=== PATIENT | female | born 1940 | race Caucasian/White ===

== ENCOUNTER 2022-04-23 20:47 | Emergency (ER) | payer OTHER, MEDICARE ==
[~2022-04-23] VITALS: Ht 157.5 cm; Wt 74.4 kg
[~2022-04-23 20:47] MED LIST: FURO20 PO; GABA300 PO; HYDACE5325 PO; PRAM.125 PO
[2022-04-23] MEDS ORDERED: FOSAMAX70 MG PO (21:00)
== END 2022-04-24 00:53 | disposition home or self-care (01) ==
LOC: ER 20:47
DX: S52.691A Other fracture of lower end of right ulna, initial encounter for closed fracture (principal); J44.9 Chronic obstructive pulmonary disease, unspecified; V89.2XXA Person injured in unspecified motor-vehicle accident, traffic, initial encounter; Z79.899 Other long term (current) drug therapy; Z87.891 Personal history of nicotine dependence; Z88.0 Allergy status to penicillin
CPT/HCPCS: 73090; 73110; A9270

== ENCOUNTER 2022-05-04 11:14 | Day surgery (SDC) | payer OTHER, MEDICARE ==
[~2022-05-04] VITALS: Ht 157.5 cm; Wt 75.8 kg
[~2022-05-04 11:14] MED LIST changes: +FOSAMAX70 MG PO; +PERCOCET 10-321 EA10 PO
--- NOTE | 2022-05-04 13:00 | NUR ---
Ambulatory in Day Surgery. Surgical site prepped with 2% Chlorhexidine cloth wipe. History, Chart, Medications and Allergies reviewed before start of procedure. Patient confirms NPO status and agrees with scheduled surgery. Pre-Op teaching done. Pt verbalizes understanding. Patient States Post-Procedure ride home has been arranged WITH DAUGHTER JAMES.
--- NOTE | 2022-05-04 17:20 | NUR ---
pT IS AWAKE AND ALERT, VITALS ARE STABLE. PT DRESSED WITH HELP OF DAUGHTER, NURSE REMAINED IN ROOM. Discharge instructions reviewed with patient. Patient verbalizes understanding. Copy given to patient to take home. Lungs clear T/O to Auscultation. Discharged via wheelchair to private car for ride home.
== END 2022-05-04 23:07 | disposition home or self-care (01) ==
LOC: ORSCMMR 11:14 → ORD 12:30 → ORSCMMR 23:07
PROVIDERS: Orthopaedic Surgery
PROC: 0PS Upper Bones, Reposition (ICD-10-PCS; principal; 2022-05-04 13:30)
DX: S52.201A Unspecified fracture of shaft of right ulna, initial encounter for closed fracture (principal); K21.9 Gastro-esophageal reflux disease without esophagitis; M19.90 Unspecified osteoarthritis, unspecified site; Z79.899 Other long term (current) drug therapy
CPT/HCPCS: 93005; 93010; A9270; C1713; J0690; J1100; J2405; J2704; J3010; J7120

== ENCOUNTER 2023-01-04 09:47 | Day surgery (SDC) | payer MEDICARE ==
[2023-01-04] VITALS (12 sets, daily range): BP systolic 106–148; BP diastolic 50–95
[~2023-01-04] VITALS: Ht 152.4 cm; Wt 75.3 kg
[~2023-01-04 09:47] MED LIST changes: +VITAMIN D310 MC4 PO
--- NOTE | 2023-01-04 14:01 | NUR ---
Ambulatory in Day Surgery Patient confirms NPO status and agrees with scheduled surgery. Pre-Op teaching done. Pt verbalizes understanding. History, Chart, Medications and Allergies reviewed before start of procedure.
--- NOTE | 2023-01-04 15:53 | NUR ---
01/04/23 1553 Rebecca Jang PRIOR TO PREPPING PATIENT'S SKIN NOTED REDNESS AND IRRITATION PRESENT ALONG LOWER RIGHT ABDOMEN TO MIDLINE,AND RIGHT GWYN/GROIN WITH SMALL AMOUNT OF FLUID. , [place], AND NOTIFIED. EXAMINED AREA. MICONAZOLE NITRATE 2% POWDER ORDERED FOR APLLICATION POST OP PER .
--- NOTE | 2023-01-04 19:11 | NUR ---
SHIFT SUMMARY PT A&OX4, VSS/2LNC, NOHELIA PO, AWAITING POST OP VOID/BEDREST, PAIN MANAGED. S/P R TKA AQUACEL/CRISTINA CDI, WIGGLES TOES. WILL REPORT TO ONCOMING NOC RN.
--- NOTE | 2023-01-05 04:08 | NUR ---
SHIFT SUMMARY POD1 R TKA PT A&O X4, DENIES ANY PAIN. PT ON 2L NC T/O NIGHT. PT UP TO BATHROOM, VOIDING. TOLERATING PO INTAKE. AQUACEL AND CRISTINA WRAP TO R KNEE C/D/I. PT SLEPT T/O NIGHT. NO OTHER CONCERNS AT THIS TIME. CALL LIGHT WITHIN REACH.
[2023-01-05 04:19] VITALS: BP 116/60
[2023-01-05 04:21] LABS: BASOPHILS ABSOLUTE AUTO 0.04 K/mm3 (0.00-0.23); BASOPHILS PERCENT AUTO 1 % (0-2); EOSINOPHILS ABSOLUTE AUTO 0.08 K/mm3 (0.00-0.68); EOSINOPHILS PERCENT AUTO 1 % (0-6); Hematocrit 35.1 % (33.0-51.0); IMMATURE GRAN ABSOLUTE AUTO 0.02 K/mm3 (0.00-0.10); IMMATURE GRAN PERCENT AUTO 0 % (0-1); LYMPHOCYTES ABSOLUTE AUTO 1.89 K/mm3 (0.84-5.20); LYMPHOCYTES PERCENT AUTO 26 % (21-46); MONOCYTES ABSOLUTE AUTO 0.57 K/mm3 (0.16-1.47); MONOCYTES PERCENT AUTO 8 % (4-13); Mean Corpuscular HGB 27.1 pg (26.0-34.0); Mean Corpuscular HGB Conc 31.3 g/dL (31.5-36.5); Mean Corpuscular Volume 87 fL (80-100); Mean Platelet Volume 10.7 fL (9.1-12.4); NEUTROPHILS PERCENT AUTO 65 % (41-73); Platelet Count 200 K/mm3 (150-400); RDW Coefficient Variation 13.2 % (11.7-14.2); RDW Standard Deviation 41.2 fL (35.1-46.3); Red Blood Cell Count 4.06 M/mm3 (3.80-5.20)
[2023-01-05 04:43] LABS: Calcium, Blood 8.1 mg/dL (8.5-10.1); Creatinine, Blood 0.74 mg/dL (0.40-1.00); Potassium, Blood 3.9 mmol/L (3.5-5.5)
--- NOTE | 2023-01-05 05:52 | NUR ---
PT REFUSED TO GET UP IN CHAIR THIS MORNING. ASKED IF SHE COULD GET UP IN LITTLE BIT. WILL REAPPROACH.
[2023-01-05 07:45] VITALS: BP 115/58
[2023-01-05] MEDS ORDERED: Percocet 5-3251 EACH PO (09:07)
[2023-01-05] MEDS ORDERED: ASPI81CH PO (09:07)
--- NOTE | 2023-01-05 11:22 | NUR ---
DISCHARGE NOTE: PATIENT WAS EDUCATED ON DISCHARGE INSTRUCTIONS. SHE VERBALIZED UNDERSTANDING OF INSTRUCTIONS AND HAD NO FURTHER QUESTIONS AT THIS TIME. PAIN IS MANAGED WITH PO PAIN MEDS. HARD PERSCRIPTIONS WERE ALREADY TAKEN AND FILLED OUT BY DAUGHTER YESTERDAY. HER RIGHT KNEE HAS AN AQUACEL THAT IS C/D/I. SHE IS A SBA WITH FWW AND GAIT BELT. PATIENT IS VOIDING AND TOLERATING PO INTAKE. PATIENT IS DRESSED AND PERSONAL ITEMS IN THE ROOM ARE GATHERED. PATIENT IS AWAITING FOR HER RIDE TO COME AND PICK HER UP TO TAKE HER HOME.
--- NOTE | 2023-01-05 12:30 | NUR ---
PATIENT WAS WHEELCHAIRED OUT TO HER DAUGHTERS CAR TO BE TAKEN HOME.
== END 2023-01-05 12:30 | disposition home or self-care (01) ==
LOC: ORSCMMR 09:47 → ORD 11:00 → ORSCMMR 11:00 → ORD 12:30 → SURS 17:34 → ORSCMMR 01-05 12:30
PROVIDERS: Orthopaedic Surgery
PROC: 0SRD0JA Replacement of Left Knee Joint with Synthetic Substitute, Uncemented, Open Approach (ICD-10-PCS; principal; 2023-01-04 12:30)
DX: M17.11 Unilateral primary osteoarthritis, right knee (principal); I10 Essential (primary) hypertension; J44.9 Chronic obstructive pulmonary disease, unspecified; Z87.891 Personal history of nicotine dependence; Z99.81 Dependence on supplemental oxygen; Z79.899 Other long term (current) drug therapy
CPT/HCPCS: 36415; 73560-RT; 80048; 85025; 97110; 97116; 97162; A9270; C1713; C1776; J0171; J0690; J0735; J1170; J1885; J2250; J2371; J2405; J2704; J2795; J3010; J7120